=== PATIENT | female | born 1990 | race Caucasian/White ===

== ENCOUNTER 2020-11-06 16:16 | Outpatient (CLI) | payer OTHER ==
[~2020-11-06] VITALS: Ht 162.6 cm; Wt 74.5 kg
[2020-11-06 16:54] LABS: BASOPHILS % (AUTO) 1 % (0-1); EOSINOPHILS % (AUTO) 1 % (1-7); LYMPHOCYTES % (AUTO) 18 % (22-44); MEAN CORPUSCULAR HEMOGLOBIN 30.4 pg (27.0-34.8); MEAN CORPUSCULAR HGB CONC 33.5 g/dL (32.4-35.8); MEAN PLATELET VOLUME 8.3 fL (7.4-10.4); MONOCYTES % (AUTO) 7 % (2-9); NEUTROPHILS % (AUTO) 74 % (42-75); PLATELET COUNT 247 x10^3/uL (130-400); RED BLOOD COUNT 4.51 x10^6/uL (3.82-5.3); RED CELL DISTRIBUTION WIDTH 12.7 % (9.6-15.2)
[2020-11-06 16:59] LABS: MICROSCOPIC INDICATED
[2020-11-06 17:02] VITALS: BP 140/85
[2020-11-06] MEDS ORDERED: PREN1TAB10 PO (17:03)
[2020-11-06 17:04] LABS: ALBUMIN 2.5 g/dL (3.4-5.0); ANION GAP 6 mmol/L (5-15); CALCIUM 8.7 mg/dL (8.5-10.1); CHLORIDE 107 mmol/L (98-107)
[2020-11-06] MEDS ORDERED: DOCO100C PO (17:04)
[2020-11-06] MEDS ORDERED: INSU100I43 SQ (17:05)
[2020-11-06 17:06] LABS: CREATININE,URINE RANDOM 77.7 mg/dL
[2020-11-06 17:08] LABS: ALANINE AMINOTRANSFERASE 21 U/L (12-78); ALKALINE PHOSPHATASE 95 U/L (45-117); BILIRUBIN,TOTAL 0.2 mg/dL (0.2-1.0); CREATININE 0.37 mg/dL (0.55-1.02); TOTAL PROTEIN 6.6 g/dL (6.4-8.2)
== END 2020-11-06 17:56 | disposition home or self-care (01) ==
LOC: LDOP 16:16
PROVIDERS: ATTEND Obstetrics & Gynecology
DX: O13.3 Gestational [pregnancy-induced] hypertension without significant proteinuria, third trimester (principal); Z3A.33 33 weeks gestation of pregnancy
CPT/HCPCS: 36415; 59025; 80053; 81001; 82570; 84156; 84550; 85025

== ENCOUNTER 2020-12-01 07:52 | Inpatient (IN) | payer OTHER ==
[~2020-12-01] VITALS: Ht 162.6 cm; Wt 88.6 kg
[~2020-12-01 07:52] MED LIST: DOCO100C PO; INSU100I43 SQ; PREN1TAB10 PO
[2020-12-01] MEDS ORDERED: PLEASE ENTER HEIGHT AND WEIGHT MC SCH (08:30)
[2020-12-01] MEDS ORDERED: SODIUM CITRATE/CITRIC ACID 30 ML UDC PO ONE (08:30)
[2020-12-01] MEDS ORDERED: LACTATED RINGERS 1,000 ML IVBOLUS ONE (08:30)
[2020-12-01] MEDS ORDERED: METOCLOPRAMIDE 5 MG/ML, 2ML IV ONE (08:30)
[2020-12-01] MEDS ORDERED: AZITHROMYCIN 500 MG in SODIUM CHLORIDE 0.9% 250 ML IV ONE (08:30)
[2020-12-01] MEDS ORDERED: NEWBORN KIT ONE (08:56)
[2020-12-01] MEDS ORDERED: METOCLOPRAMIDE 5 MG/ML, 2ML ONE (08:56)
[2020-12-01] MEDS ORDERED: OXYTOCIN 30U/ 0.9% NaCL 500ML 500 ML ONE (08:57)
[2020-12-01] MEDS ORDERED: SODIUM CITRATE/CITRIC ACID 15 ML UDC ONE (08:57)
[2020-12-01] MEDS: LACTATED RINGERS 1,000 ML IV SCH ×6 (09:30→21:00)
[2020-12-01 09:35] LABS: BASOPHILS % (AUTO) 0 % (0-1); EOSINOPHILS % (AUTO) 1 % (1-7); LYMPHOCYTES % (AUTO) 15 % (22-44); MEAN CORPUSCULAR HEMOGLOBIN 30.6 pg (27.0-34.8); MEAN CORPUSCULAR HGB CONC 34.4 g/dL (32.4-35.8); MEAN PLATELET VOLUME 8.7 fL (7.4-10.4); MONOCYTES % (AUTO) 6 % (2-9); NEUTROPHILS % (AUTO) 78 % (42-75); PLATELET COUNT 230 x10^3/uL (130-400); RED BLOOD COUNT 4.47 x10^6/uL (3.82-5.3); RED CELL DISTRIBUTION WIDTH 13.5 % (9.6-15.2)
[2020-12-01 09:42] VITALS: BP 136/92
[2020-12-01] MEDS ORDERED: morphine SULFATE/PF 0.5 MG/ML, 10ML ONE (10:34)
[2020-12-01] MEDS ORDERED: SODIUM CHLORIDE 0.9% PF 10ML ONE (10:36)
[2020-12-01] MEDS ORDERED: ONDANSETRON 2MG/ML, 2ML ONE (10:36)
[2020-12-01] MEDS ORDERED: PHENYLEPHRINE 10 MG/ML ONE (10:36)
[2020-12-01] MEDS ORDERED: KETOROLAC 30 MG/1 ML ONE (10:36)
[2020-12-01] MEDS ORDERED: DEXAMETHASONE 4 MG/ML, 1ML ONE (10:36)
[2020-12-01] MEDS ORDERED: CEFAZOLIN 1,000 MG ONE (10:36)
[2020-12-01] MEDS ORDERED: OXYTOCIN 10 UNITS/ML, 1ML ONE (10:48)
[2020-12-01] MEDS ORDERED: METOCLOPRAMIDE 5 MG/ML, 2ML IV PRN (11:00)
[2020-12-01] MEDS ORDERED: CALCIUM CARBONATE 500 MG TAB.CHEW PO PRN (11:00)
[2020-12-01] MEDS ORDERED: MISOPROSTOL 200 MCG TABLET SL PRN (11:00)
[2020-12-01] MEDS ORDERED: DIPH,PERTUSS(ACELL),TET VAC/PF NC IM-VACC PRN (11:00)
[2020-12-01] MEDS: KETOROLAC 30 MG/1 ML IV SCH ×3 (11:00→22:57)
[2020-12-01] MEDS ORDERED: SIMETHICONE 80 MG CHEW TAB PO PRN (11:00)
[2020-12-01] MEDS ORDERED: MORPHINE SULFATE 4 MG/ML, 1ML IVPush PRN (11:00)
[2020-12-01] MEDS ORDERED: ACETAMINOPHEN 325 MG TABLET PO PRN (11:00)
[2020-12-01] MEDS ORDERED: ONDANSETRON 2MG/ML, 2ML IV PRN (11:00)
[2020-12-01] MEDS ORDERED: METHYLERGONOVINE 0.2 MG/ML IM PRN (11:00)
[2020-12-01] MEDS ORDERED: OXYcodone IR 5MG TABLET PO PRN (11:00)
[2020-12-01] MEDS: OXYTOCIN 30U/ 0.9% NaCL 500ML 500 ML IV SCH ×2 (11:42→21:00)
[2020-12-01 13:15] VITALS: BP 113/75
[2020-12-01 17:00] VITALS: BP 114/71
[2020-12-01 20:00] VITALS: BP 116/76
[2020-12-01 21:02] LABS: BASOPHILS % (AUTO) 1 % (0-1); EOSINOPHILS % (AUTO) 0 % (1-7); LYMPHOCYTES % (AUTO) 10 % (22-44); MEAN CORPUSCULAR HEMOGLOBIN 29.8 pg (27.0-34.8); MEAN CORPUSCULAR HGB CONC 33.7 g/dL (32.4-35.8); MEAN PLATELET VOLUME 8.3 fL (7.4-10.4); MONOCYTES % (AUTO) 4 % (2-9); NEUTROPHILS % (AUTO) 86 % (42-75); PLATELET COUNT 211 x10^3/uL (130-400); RED BLOOD COUNT 4.22 x10^6/uL (3.82-5.3); RED CELL DISTRIBUTION WIDTH 12.9 % (9.6-15.2)
[2020-12-01] MEDS: DOCUSATE 100 MG CAPSULE PO SCH (22:57)
[2020-12-02 00:20] VITALS: BP 103/67
[2020-12-02] MEDS: LACTATED RINGERS 1,000 ML IV SCH ×5 (03:00→19:00)
[2020-12-02 04:00] VITALS: BP 113/74
[2020-12-02] MEDS: KETOROLAC 30 MG/1 ML IV SCH (05:13)
[2020-12-02] MEDS: OXYTOCIN 30U/ 0.9% NaCL 500ML 500 ML IV SCH ×2 (07:00→17:00)
[2020-12-02 08:00] VITALS: BP 131/86
[2020-12-02] MEDS: PRENATAL VIT/IRON/FA 1 EACH TABLET PO SCH (08:47)
[2020-12-02] MEDS: DOCUSATE 100 MG CAPSULE PO SCH ×2 (08:48→20:54)
[2020-12-02] MEDS: IBUPROFEN 600 MG TABLET PO PRN ×3 (11:02→23:00)
[2020-12-02 20:05] VITALS: BP 125/85
[2020-12-02] MEDS: OXYcodone IR 5MG TABLET PO PRN (20:54)
[2020-12-03] MEDS: OXYTOCIN 30U/ 0.9% NaCL 500ML 500 ML IV SCH ×3 (03:00→11:48)
[2020-12-03] MEDS: LACTATED RINGERS 1,000 ML IV SCH ×4 (03:00→11:48)
[2020-12-03] MEDS: OXYcodone IR 5MG TABLET PO PRN (05:00)
[2020-12-03] MEDS: IBUPROFEN 600 MG TABLET PO PRN ×3 (05:00→17:49)
[2020-12-03] MEDS ORDERED: MEASLES,MUMPS&RUBELLA VACC/PF 0.5 ML SQ-VACC ONE (05:30)
[2020-12-03 07:25] VITALS: BP 129/85
[2020-12-03] MEDS: DOCUSATE 100 MG CAPSULE PO SCH (10:52)
[2020-12-03] MEDS: PRENATAL VIT/IRON/FA 1 EACH TABLET PO SCH (10:52)
[2020-12-03] MEDS ORDERED: DOCU-131 PO (12:33)
[2020-12-03] MEDS ORDERED: OXYC1TAB14 PO (12:33)
[2020-12-03] MEDS ORDERED: IBUP-1222 PO (12:33)
[2020-12-03 19:50] VITALS: BP 126/81
[2020-12-04] MEDS: IBUPROFEN 600 MG TABLET PO PRN ×2 (00:11→06:12)
[2020-12-04] MEDS: DOCUSATE 100 MG CAPSULE PO SCH (00:11)
[2020-12-04 07:15] VITALS: BP 118/82
== END 2020-12-04 11:40 | disposition home or self-care (01) | DRG 788 ==
LOC: LDOP 07:52 → LDIP 08:18 → 2NW 13:11
PROVIDERS: ADMIT Obstetrics & Gynecology; ATTEND Obstetrics & Gynecology
PROC: 10D00Z1 Extraction of Products of Conception, Low, Open Approach (ICD-10-PCS; principal; 2020-12-01)
DX: O13.4 Gestational [pregnancy-induced] hypertension without significant proteinuria, complicating childbirth (principal); O24.424 Gestational diabetes mellitus in childbirth, insulin controlled; O32.1XX0 Maternal care for breech presentation, not applicable or unspecified; O42.92 Full-term premature rupture of membranes, unspecified as to length of time between rupture and onset of labor; O69.81X0 Labor and delivery complicated by cord around neck, without compression, not applicable or unspecified; O75.89 Other specified complications of labor and delivery; L40.9 Psoriasis, unspecified; Z20.822 Contact with and (suspected) exposure to COVID-19; Z37.0 Single live birth; Z3A.37 37 weeks gestation of pregnancy; Z80.7 Family history of other malignant neoplasms of lymphoid, hematopoietic and related tissues; Z83.3 Family history of diabetes mellitus; Z28.21 Immunization not carried out because of patient refusal
CPT/HCPCS: 36415; 85025; 86592; 86850; 86900; 87635; G0378; J0456; J0690; J1100; J1885; J2274; J2405; J2370; J2590; J2765; J7050; J7120